=== PATIENT | female | born 1995 | race African-American/Black ===

== ENCOUNTER 2022-06-19 13:51 | Emergency (ER) | payer BC ==
[~2022-06-19] VITALS: Ht 165.1 cm; Wt 99.0 kg
[2022-06-19] MEDS ORDERED: FAMOTIDINE 20MG/2ML VIAL IV ONE (14:00)
[2022-06-19] MEDS ORDERED: DIPHENHYDRAMINE 50MG/ML VIAL IV ONE (14:00)
[2022-06-19] MEDS ORDERED: METHYLPREDNISOLONE SOD SUCC 125 MG/2 ML VIAL IV ONE (14:00)
[2022-06-19] MEDS ORDERED: SODIUM CHLORIDE 0.9% 1,000 ML IV SCH (14:00)
[2022-06-19] MEDS ORDERED: [UNRECOGNIZED DRUG - CODE] PO (15:25)
[2022-06-19] MEDS ORDERED: DIPH25CA83 PO (15:25)
[2022-06-19] MEDS ORDERED: P20 MT (15:25)
[2022-06-19] MEDS ORDERED: FAMO-135 MT (15:25)
[2022-06-19 15:51] VITALS: BP 131/75
== END 2022-06-19 15:52 | disposition home or self-care (01) ==
LOC: ER 14:11
DX: T78.1XXA Other adverse food reactions, not elsewhere classified, initial encounter (principal); J45.909 Unspecified asthma, uncomplicated; X58.XXXA Exposure to other specified factors, initial encounter
CPT/HCPCS: 96361; 96374; 96375; 99291; J1200; J2930; J3490